=== PATIENT | male | born 1945 | race Caucasian/White ===

== ENCOUNTER 2020-07-06 00:23 | Emergency (ER) | payer MEDICARE, BC ==
[2020-07-06] MEDS ORDERED: HYDROcod/ACET 5/325 Prepack 4 PO STA (01:17)
[2020-07-06] MEDS ORDERED: AMOX/CLAV 875 MG/125 MG TABLET PO STA (01:17)
--- NOTE | 2020-07-06 01:21 | ED Physician Documentation ---
PD HPI HEENT - Stated complaint Stated Complaint: TOOTH PX - Chief complaint Chief Complaint: Heent - History obtained from History obtained from: Patient - History of Present Illness Timing - onset: How many days ago (4) Timing - duration: Days (4) Timing - details: Gradual onset, Still present Location: Tooth Improves: Medication Associated symptoms: No: Fever, Congestion, Rhinorrhea, Trismus, Unable to swallow, Swollen nodes, Facial swelling, Headache, Cough Similar symptoms before: Diagnosis (dental abscess) Recently seen: Clinic - Additional information Additional information: 74-year-old male with the history of atrial fibrillation on anticoagulation has developed a bad tooth in the left upper and he has had some pain associated with this he went to see his dentist was put on some penicillin and oxycodone and he did not have the usual response he has had from antibiotic previously. He took some of the oxycodone and found that it made him vomit and he has not taken an ymore. He only had 5 pills. He has not been able to sleep the last 4 nights with unrelenting pain. Review of Systems Constitutional: denies: Fever Eyes: denies: Decreased vision Ears: denies: Ear pain Nose: denies: Rhinorrhea / runny nose, Congestion Throat: reports: Dental pain / toothache Cardiac: denies: Chest pain / pressure Respiratory: denies: Dyspnea, Cough GI: reports: Vomiting (once with taking the oxycodone). denies: Abdominal Pain : denies: Dysuria, Frequency Skin: denies: Rash Musculoskeletal: denies: Neck pain, Back pain, Extremity pain Neurologic: denies: Generalized weakness, Focal weakness, Numbness PD PAST MEDICAL HISTORY - Past Medical History Past Medical History: Yes Cardiovascular: Coronary artery disease, Atrial fibrillation, Other Respiratory: None Endocrine/Autoimmune: Type 2 diabetes GI: Colon polyps : Benign prostate hypertrophy, Frequency, Kidney stones HEENT: Chronic hearing loss Psych: None Musculoskeletal: None Derm: None - Past Surgical History Past Surgical History: Yes General: Colonoscopy, Other Cardiovascular: Coronary stent HEENT: Tonsil/Adenoidectomy, Other - Present Medications Home Medications: Ambulatory Orders Medication Instructions Recorded Confirmed Aspirin [Aspir 81] 81 mg PO DAILY 06/08/14 07/06/20 Atorvastatin [Lovastatin] 10 mg PO DAILY 06/08/14 07/06/20 Blood Builder 1 tab PO DAILY 06/08/14 07/06/20 Cholecalciferol (Vitamin D3) 5,000 unit PO DAILY 06/08/14 07/06/20 [Vitamin D] Ipratropium Breaks 15 ml NS BID 06/08/14 07/06/20 Metformin HCl 1,500 mg PO BID 06/08/14 07/06/20 [employer] Fatty Acids/Fish Oil [Fish 1 each PO BID 06/08/14 07/06/20 Oil 1,000 mg Capsule] allopurinoL [Allopurinol] 300 mg PO DAILY 06/08/14 07/06/20 lisinopriL [Lisinopril] 10 mg PO DAILY 06/08/14 07/06/20 Amox/Clav 875/125 [Augmentin] 1 each PO Q12H #14 tablet 07/06/20 Apixaban [Eliquis] 5 mg PO BID 07/06/20 07/06/20 Canagliflozin [Invokana] 100 mg PO DAILY 07/06/20 07/06/20 Glipizide [Glipizide Xl] 10 mg PO DAILY 07/06/20 07/06/20 HYDROcod/ACETAM 5/325 [[place] 5/325] 1 - 2 each PO Q6H PRN #14 tablet 07/06/20 Metoprolol Succinate [Toprol Xl] 50 mg PO DAILY 07/06/20 07/06/20 Mupirocin Calcium [Mupirocin] 1 applic TOP DAILY PRN 07/06/20 07/06/20 [employer]/Dha/Epa/Fish Oil [Fish Oil 1 each PO DAILY 07/06/20 07/06/20 1,000 mg Softgel] Pantoprazole Sodium 40 mg PO TIDWM 07/06/20 07/06/20 Penicillin Vk 500 mg PO Q6HR 07/06/20 07/06/20 - Allergies Allergies/Adverse Reactions: Allergies Allergy/AdvReac Type Severity Reaction Status Date / Time No Known Drug Allergies Allergy Verified 07/06/20 00:45 - Social History Does the pt smoke?: No Smoking Status: Never smoker Does the pt drink ETOH?: Yes Does the pt have substance abuse?: No - Immunizations Immunizations are current?: Yes - POLST Patient has POLST: No PD ED PE NORMAL - Vitals Vital signs reviewed: Yes (tachy and hypertensive ) - General General: Alert and oriented X 3, No acute distress, Well developed/nourished - HEENT HEENT: Atraumatic, PERRL, EOMI, Other (Exam of the teeth shows multiple crowns and #13 and #14 are the teeth of pain. The tooth is not broken and there is recession of the gingiva on the mesial side of the teeth. ) - Neck Neck: Supple, no meningeal sign, No bony TTP - Respiratory Respiratory: No respiratory distress - Derm Derm: Normal color, Warm and dry, No rash - Extremities Extremities: No deformity, No edema - Neuro Neuro: Alert and oriented X 3, automatic screwmaker 2-12 intact, No motor deficit, No sensory deficit, Normal speech Eye Opening: Spontaneous Motor: Obeys Commands Verbal: Oriented GCS Score: 15 - Psych Psych: Normal mood, Normal affect Results - Vitals Vitals: Vital Signs - 24 hr 07/06/20 00:30 Temperature 36.4 C L Heart Rate 103 H Respiratory 18 Rate Blood Pressure 136/94 H O2 Saturation 96 Oxygen O2 Source Room air PD MEDICAL DECISION MAKING - ED course Complexity details: considered differential, d/w patient ED course: 74-year-old male with dental pain not improved with the use of penicillin is given a dose of Augmentin here we will change his antibiotic to Augmentin and we will provide some hydrocodone. He does not recall ever having a reaction to hydrocodone or having problem with vomiting with it. Departure - Departure Disposition: 01 Home, Self Care Clinical Impression: Pain, dental Condition: Stable Instructions: ED Tooth Pain Follow-Up: TERESA LÓPEZ MD [Primary Care Provider] - Your, dentist [Other] Prescriptions: Amox/Clav 875/125 [Augmentin] 1 each PO Q12H #14 tablet HYDROcod/ACETAM 5/325 [[place] 5/325] 1 - 2 each PO Q6H PRN #14 tablet PRN Reason: Pain
[2020-07-06 01:35] VITALS: BP 129/95
== END 2020-07-06 01:35 | disposition home or self-care (01) ==
LOC: ED 00:23
DX: K04.7 Periapical abscess without sinus (principal); I48.91 Unspecified atrial fibrillation; Z79.01 Long term (current) use of anticoagulants; T40.2X5A Adverse effect of other opioids, initial encounter; E11.9 Type 2 diabetes mellitus without complications; Z79.84 Long term (current) use of oral hypoglycemic drugs; Z79.82 Long term (current) use of aspirin; R03.0 Elevated blood-pressure reading, without diagnosis of hypertension
CPT/HCPCS: 99282; 99284; A9270

== ENCOUNTER 2020-07-17 11:14 | Outpatient (CLI) | payer MEDICARE, BC ==
[2020-07-17 14:37] LABS: BASOPHILS % (AUTO) 0.5 %; EOSINOPHILS % (AUTO) 0.4 %; HGB - HEMOGLOBIN 12.6 g/dL (14.0-18.0); LYMPHOCYTES % (AUTO) 11.8 %; MEAN CORPUSCULAR HEMOGLOBIN 31.7 pg (27.0-31.0); MEAN CORPUSCULAR HGB CONC 33.1 g/dL (32.0-36.0); MEAN PLATELET VOLUME 9.9 fL (7.4-11.4); MONOCYTES # (AUTO) 0.5 10^3/uL (0.0-1.0); MONOCYTES % (AUTO) 5.8 %; NEUTROPHILS # (AUTO) 6.9 10^3/uL (1.5-6.6); NEUTROPHILS % (AUTO) 80.4 %; PLT - PLATELET COUNT 214 10^3/uL (130-450); RED BLOOD COUNT 3.97 10^6/uL (4.70-6.10); RED CELL DISTRIBUTION WIDTH 12.5 % (12.0-15.0); WHITE BLOOD COUNT 8.5 x10^3/uL (4.8-10.8)
[2020-07-17 15:25] LABS: ALBUMIN/GLOBULIN RATIO 1.1 (1.0-2.2); BILIRUBIN,TOTAL 0.8 mg/dL (0.2-1.0); CALCIUM 9.5 mg/dL (8.5-10.3); TOTAL PROTEIN 7.6 g/dL (6.7-8.2)
== END 2020-07-17 11:15 | disposition home or self-care (01) ==
LOC: LAB.S 11:14
PROVIDERS: ATTEND Dentist Oral and Maxillofacial Surgery
DX: R58 Hemorrhage, not elsewhere classified (principal)
CPT/HCPCS: 36415; 80053; 85025

== ENCOUNTER 2023-07-24 11:52 | Outpatient (CLI) | payer MEDICARE, BC ==
[2023-07-24 15:33] LABS: BASOPHILS % (AUTO) 0.6 %; EOSINOPHILS # (AUTO) 0.1 10^3/uL (0.0-0.7); EOSINOPHILS % (AUTO) 1.8 %; HCT - HEMATOCRIT 27.4 % (42.0-52.0); HGB - HEMOGLOBIN 8.3 g/dL (14.0-18.0); LYMPHOCYTES # (AUTO) 0.7 10^3/uL (1.5-3.5); LYMPHOCYTES % (AUTO) 12.9 %; MEAN CORPUSCULAR HEMOGLOBIN 29.4 pg (27.0-31.0); MEAN CORPUSCULAR HGB CONC 30.3 g/dL (32.0-36.0); MEAN CORPUSCULAR VOLUME 97.2 fL (80.0-94.0); MEAN PLATELET VOLUME 9.6 fL (7.4-11.4); MONOCYTES # (AUTO) 0.3 10^3/uL (0.0-1.0); MONOCYTES % (AUTO) 6.4 %; NEUTROPHILS % (AUTO) 77.5 %; PLT - PLATELET COUNT 202 10^3/uL (130-450); RED BLOOD COUNT 2.82 10^6/uL (4.70-6.10); RED CELL DISTRIBUTION WIDTH 17.4 % (12.0-15.0); WHITE BLOOD COUNT 5.1 x10^3/uL (4.8-10.8)
== END 2023-07-24 11:53 | disposition home or self-care (01) ==
LOC: LAB.S 11:52
PROVIDERS: ATTEND Internal Medicine
DX: J90 Pleural effusion, not elsewhere classified (principal)
CPT/HCPCS: 36415; 85025; 85730

== ENCOUNTER 2023-07-31 13:48 | Outpatient (CLI) | payer MEDICARE, BC ==
[2023-07-31 20:03] LABS: ABSOLUTE RETICS # AUTO 0.056 10^6/uL (0.020-0.110); BASOPHILS % (AUTO) 0.6 %; EOSINOPHILS # (AUTO) 0.1 10^3/uL (0.0-0.7); EOSINOPHILS % (AUTO) 1.4 %; HCT - HEMATOCRIT 28.9 % (42.0-52.0); HGB - HEMOGLOBIN 8.4 g/dL (14.0-18.0); LYMPHOCYTES # (AUTO) 0.6 10^3/uL (1.5-3.5); MEAN CORPUSCULAR HEMOGLOBIN 28.5 pg (27.0-31.0); MEAN CORPUSCULAR HGB CONC 29.1 g/dL (32.0-36.0); MEAN PLATELET VOLUME 9.6 fL (7.4-11.4); MONOCYTES # (AUTO) 0.3 10^3/uL (0.0-1.0); MONOCYTES % (AUTO) 5.3 %; NEUTROPHILS # (AUTO) 3.9 10^3/uL (1.5-6.6); NEUTROPHILS % (AUTO) 79.3 %; PLT - PLATELET COUNT 233 10^3/uL (130-450); RED BLOOD COUNT 2.95 10^6/uL (4.70-6.10); RED CELL DISTRIBUTION WIDTH 17.6 % (12.0-15.0); RETICULOCYTE COUNT % (AUTO) 1.91 % (0.5-2.3); WHITE BLOOD COUNT 4.9 x10^3/uL (4.8-10.8)
[2023-07-31 20:37] LABS: ALBUMIN 3.7 g/dL (3.2-5.5); ALBUMIN/GLOBULIN RATIO 0.9 (1.0-2.2); BILIRUBIN,TOTAL 0.4 mg/dL (0.2-1.0); CREATININE 1.9 mg/dL (0.6-1.3); CRP - C-REACTIVE PROTEIN 10.1 mg/dL (<0.5); POTASSIUM 4.6 mmol/L (3.5-4.5); TOTAL PROTEIN 7.9 g/dL (6.4-8.9)
[2023-07-31 20:52] LABS: FERRITIN 197.1 ng/mL (23.9-336.2)
== END 2023-07-31 13:49 | disposition home or self-care (01) ==
LOC: LAB.S 13:48
PROVIDERS: ATTEND Family Medicine
DX: D64.9 Anemia, unspecified (principal)
CPT/HCPCS: 36415; 80053; 82607; 82728; 82746; 83540; 83615; 84466; 85025; 85045; 85651; 86140